=== PATIENT | female | born 1945 | race African-American/Black ===

== ENCOUNTER 2018-05-15 11:08 | Outpatient (CLI) | payer MEDICARE, BC ==
[~2018-05-15 11:08] MED LIST: Iopamidol 370 76% 100 ML VIAL ONE
--- NOTE | 2018-05-15 13:49 | CT ---
CTA OF THE ABDOMEN UTILIZING IV CONTRAST AND 3D REFORMATTED IMAGING: Date: 05/15/18 INDICATION: History of atherosclerotic disease. CONTRAST: 95 mL [id number]. COMPARISON: None. 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 The renal arterie s and SMA are patent. There is some mild to moderate scattered vascular calcification involving the a bdominal aorta. There is mild narrowing involving the origin of the BINTA. There are peripherally enhancing lesions within the liver. One is seen within the lateral left hepati c lobe on image 46 of series 2, measuring 2.6 cm. An additional is seen within segment 7 of the right hepatic lobe measuring 2.8 cm. There is a 9.0 cm nodule within the left adrenal gland that is incompletely characterized. There is a 4.6 mm cystic lesion involving the pancreatic body that is incompletely characterized. Spleen is normal in size. No pathologically enlarged lymph nodes are evident. Visualized unopacified large and small bowel are unremarkable. There is scattered degenerative and osteoarthritic change. IMPRESSION: 1. 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 2. Mild narrowing involving the BINTA origin. 3. Peripherally enhancing hypodensities within the liver, incompletely characterized. Differential c onsiderations include possibly hemangioma or metastatic disease. 4. Left adrenal nodule, incompletely characterized. 5. Small hypodensity within the pancreatic body incompletely characterized. Recommend consideration for CT or MRI of the abdomen utilizing a hemangioma protocol for further audelia acterization of the lesions within the liver, left adrenal gland, and pancreas. POS: VENICE
== END 2018-05-15 11:09 | disposition home or self-care (01) ==
LOC: CT 11:08
PROVIDERS: ATTEND Thoracic Surgery (Cardiothoracic Vascular Surgery)
DX: I70.211 Atherosclerosis of native arteries of extremities with intermittent claudication, right leg (principal); I77.4 Celiac artery compression syndrome; K55.1 Chronic vascular disorders of intestine; E27.8 Other specified disorders of adrenal gland; R93.2 Abnormal findings on diagnostic imaging of liver and biliary tract; K86.89 Other specified diseases of pancreas
CPT/HCPCS: 74175; 82565

== ENCOUNTER 2018-07-13 14:40 | Outpatient (CLI) | payer MEDICARE, BC ==
--- NOTE | 2018-07-14 10:28 | CT ---
CT ANGIO OF THE ABDOMEN AND PELVIS AND LOWER EXTREMITIES PERFORMED WITH AND WITHOUT CONTRAST WITH 3D RECONSTRUCTIONS: History: Leg pain. History of previous stent placement. Vascular disease. Comparison: 05-25-18 FINDINGS: Lung bases shows some mild chronic appearing changes. No infiltrative process. The liver and spleen are normal in size. There is a questionable abnormality within the right lobe of the liver on the previous examination. On this arterial phase study, the changes seen on the prior s tudy are difficult to even appreciate. The pancreas and gallbladder regions appear unremarkable. Slig ht nodularity to the left adrenal glands. The right and left kidneys are normal in size. There is an indeterminate hypodensity within the left kidney, statistically most likely a small cyst. There is no significant periaortic or mesenteric adenopathy. The abdominal aorta is normal in caliber. There is mild atherosclerotic change. There is some mild na rrowing of the origin of the celiac artery and minimal narrowing of the origin of the superior mesent ganga artery. The BINTA is present and patent. The right lower extremity run off shows no significant narrowing of the right common iliac artery. Th ere is mild narrowing of the right external iliac shortly beyond its origin, but the stenosis is at a pproximately 50%. 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 The stent extends to approximat luis miguel the level of the adductor canal. There is no flow demonstrated within the stent. There is a paten t profunda femoral artery noted. There is reconstitution of the popliteal artery via collaterals. The re is moderate stenosis of greater than 50% of the popliteal artery. There is a patent trifurcation a lthough the anterior tibial artery appears to occlude shortly after its origin. The posterior tibial artery also occludes and there is essentially one vessel runoff with the patent peroneal extending to the foot. On the left side the left common iliac artery shows an area of mild stenosis of approximately 50%. Th ere is dense atherosclerotic change of the origin of the internal common iliac artery with a patent e xternal iliac artery which shows an area of fairly severe stenosis just before becoming the common fe moral artery and there appears to be some small collaterals that form related to this. There is moder ate atherosclerotic disease within the left common femoral artery. There is occlusion of the superfic ial femoral artery at its origin with patent profunda femoral artery which has collaterals which zunilda nstitute the popliteal artery which has moderately severe stenosis. Once again there does appear to b e a patent trifurcation but the anterior tibial artery appears to occlude shortly after its origin. T here is flow seen within the posterior tibial and peroneal branches. IMPRESSION: 1. The right lower extremity run off shows moderate stenosis of the right external iliac artery with occlusion of the external iliac artery just above the level of a long stent involving the common femo ral and superficial arteries which extends to the adductor canal. There is no flow within the stent. The profunda femoral artery is patent and it reconstitutes a popliteal artery which shows moderately severe stenosis and there is single vessel runoff on the right with the peroneal extending to the russell t. 2. On the left side there is a fairly high grade area of narrowing of left external iliac artery just before it becomes the common femoral artery. There are small collaterals that are formed in this are a. There is also a moderately severe stenosis of the common femoral artery and occlusion of the super ficial femoral artery at its origin with patent profunda femoral artery which reconstitutes a poplite al artery with moderate stenosis of the popliteal artery and two vessel runoff with runoff seen relat ed to the posterior tibial and peroneal branches. POS: C
== END 2018-07-13 14:41 | disposition home or self-care (01) ==
LOC: BICCT 14:40
PROVIDERS: ATTEND Thoracic Surgery (Cardiothoracic Vascular Surgery)
DX: I70.211 Atherosclerosis of native arteries of extremities with intermittent claudication, right leg (principal); I74.5 Embolism and thrombosis of iliac artery; I70.8 Atherosclerosis of other arteries
CPT/HCPCS: 75635

== ENCOUNTER 2018-07-20 05:47 | Inpatient (IN) | payer MEDICARE, BC ==
[2018-07-19 13:48] VITALS: BMI 26.4
[2018-07-20] MEDS ORDERED: Heparin 5,000 UNITS/ML VIAL ONE (06:31)
[2018-07-20] MEDS ORDERED: Protamine Sulfate 50 MG/5 ML VIAL ONE (06:31)
[2018-07-20] MEDS ORDERED: Midazolam HCl 2 mg/2 ml Vial ONE (06:56)
[2018-07-20] MEDS ORDERED: Fentanyl 250 MCG/5 ML VIAL ONE (06:56)
[2018-07-20 07:00] LABS: Hemoglobin 12.6 g/dL (12.0-16.0); Mean Corpuscular HGB CONC 31.8 g/dL (32.0-36.0); Mean Corpuscular Hemoglobin 27.9 pg (27.0-31.0); Mean Corpuscular Volume 87.8 fL (78.0-98.0); Mean Platelet Volume 8.2 fL (7.4-10.4); Platelet Count 188 thou/uL (130-400); RBC Distribution Width 14.7 % (11.5-14.5); Red Blood Cell (RBC) Count 4.51 mill/uL (4.20-5.40); White Blood Cell (WBC) Count 5.7 thou/uL (4.8-10.8)
[2018-07-20] MEDS ORDERED: CEFAZOLIN 2 GM/50 ML BAG ONE (07:04)
[2018-07-20 07:07] LABS: Anion Gap 16 mmol/L (10-20); BUN (Urea Nitrogen) 19 mg/dL (9.8-20.1); Calc. Creatinine Clearance 54 mL/min (70-130); Calcium 10.8 mg/dL (7.8-10.44); Carbon Dioxide 25 mmol/L (23-31); Chloride 103 mmol/L (98-107); Estimated GFR-MDRD 68; Glucose 107 mg/dL (83-110); Potassium 3.5 mmol/L (3.5-5.1); Sodium 140 mmol/L (136-145)
[2018-07-20] MEDS ORDERED: Fentanyl 100 MCG/2 ML VIAL ONE ×2 (11:22→13:57)
[2018-07-20] MEDS ORDERED: PROPOFOL 200 MG/20 ML VIAL ONE (11:42)
[2018-07-20] MEDS ORDERED: Ketorolac Tromethamine 30 MG/ML VIAL ONE (11:42)
[2018-07-20] MEDS ORDERED: Ondansetron PF 4 MG/2 ML Vial ONE (11:42)
[2018-07-20] MEDS ORDERED: Glycopyrrolate 0.2 MG/ML 5 ML SYRINGE ONE (11:42)
[2018-07-20] MEDS ORDERED: Heparin 10,000 UNITS/ 10 ML VIAL ONE (11:42)
[2018-07-20] MEDS ORDERED: Lidocaine 1% PF 5 ML VIAL ONE (11:42)
[2018-07-20] MEDS ORDERED: Dexamethasone 20 MG/5 ML VIAL ONE (11:42)
[2018-07-20] MEDS ORDERED: Vecuronium 10 MG VIAL ONE (11:42)
[2018-07-20] MEDS ORDERED: Promethazine HCl 25 MG/ML VIAL IM PRN (12:47)
[2018-07-20] MEDS ORDERED: Ondansetron HCl/PF 4 MG/2 ML Vial IVP PRN (12:47)
[2018-07-20] MEDS ORDERED: Promethazine HCl 25 MG/ML VIAL SLOW IVP PRN (12:47)
[2018-07-20] MEDS ORDERED: Insulin Regular 300 UNITS/3 ML VIAL SC PRN (14:17)
[2018-07-20] MEDS ORDERED: HYDROcodone/Acetaminophen 5/325 mg Tablet PO PRN (14:17)
[2018-07-20] MEDS ORDERED: CEFAZOLIN/Water 2 GM/20 ML SYRINGE SLOW IVP SCH (14:17)
[2018-07-20] MEDS ORDERED: Nitroglycerin 50 MG/250 ML BOT 250 ML IVPB PRN (14:17)
[2018-07-20] MEDS ORDERED: traMADol HCl 50 MG TAB PO PRN (14:17)
[2018-07-20] MEDS ORDERED: DOPamine 400 MG/D5W 250 ML 250 ML IVPB PRN (14:17)
[2018-07-20] MEDS ORDERED: Acetaminophen 325 MG TAB PO PRN (14:17)
[2018-07-20] MEDS ORDERED: Fentanyl 100 MCG/2 ML VIAL SLOW IVP PRN ×2 (14:17)
[2018-07-20] MEDS ORDERED: Phenylephrine 10 MG/NS 250 ML 250 ML IVPB PRN (14:17)
[2018-07-20] MEDS: Ondansetron PF 4 MG/2 ML Vial IVP PRN (14:57)
[2018-07-20] MEDS: CEFAZOLIN 2 GM/50 ML-DEXTROSE 2 GM in Premix Bag 1 BAG IVPB SCH ×2 (15:00→23:29)
[2018-07-20] MEDS: Sodium Chloride 0.9% 1,000 ML IV SCH (15:02)
--- NOTE | 2018-07-20 15:35 | EKG ---
Test Reason : PREOP Blood Pressure : / mmHG Vent. Rate : 059 BPM Atrial Rate : 059 BPM P-R Int : 188 ms QRS Dur : 082 ms QT Int : 410 ms P-R-T Axes : 065 025 017 degrees QTc Int : 405 ms Sinus bradycardia Otherwise normal ECG No previous ECGs available Confirmed by VINICIUS SCHREIBER ([id number]) on 07/20/2018 3:33:05 PM Referred By: SHRUTI Confirmed By:VINICIUS SCHREIBER
[2018-07-20] MEDS: Enoxaparin Sodium 30 MG/0.3 ML SYRINGE SC SCH (21:47)
[2018-07-20] MEDS: Atorvastatin Calcium 10 MG TAB PO SCH (21:47)
[2018-07-20] MEDS: Carvedilol 3.125 MG TAB PO SCH (21:49)
[2018-07-21] MEDS: HYDROcodone/Acetaminophen 5/325 mg Tablet PO PRN (02:17)
[2018-07-21 05:45] LABS: #Lymphocytes 2.1 thou/uL (1.20-3.40); #Monocytes 0.8 thou/uL (0.11-0.59); #Neutrophils 6.6 thou/uL (1.40-6.50); %Basophils 0.2 % (0.0-1.0); %Lymphocytes 22.2 % (21.0-51.0); %Monocytes 8.3 % (0.0-10.0); %Neutrophils 69.2 % (42.0-75.0); Hemoglobin 8.9 g/dL (12.0-16.0); Mean Corpuscular HGB CONC 32.2 g/dL (32.0-36.0); Mean Corpuscular Hemoglobin 27.7 pg (27.0-31.0); Mean Corpuscular Volume 86.2 fL (78.0-98.0); Mean Platelet Volume 7.4 fL (7.4-10.4); Platelet Count 264 thou/uL (130-400); RBC Distribution Width 14.7 % (11.5-14.5); Red Blood Cell (RBC) Count 3.21 mill/uL (4.20-5.40); White Blood Cell (WBC) Count 9.6 thou/uL (4.8-10.8)
[2018-07-21] MEDS: CEFAZOLIN 2 GM/50 ML-DEXTROSE 2 GM in Premix Bag 1 BAG IVPB SCH (07:40)
[2018-07-21] MEDS: Ondansetron PF 4 MG/2 ML Vial IVP PRN ×2 (08:13→13:48)
[2018-07-21] MEDS ORDERED: Amlodipine 10 MG TAB PO SCH (09:00)
[2018-07-21] MEDS: Clopidogrel Bisulfate 75 MG TAB PO SCH (09:19)
[2018-07-21] MEDS: Carvedilol 3.125 MG TAB PO SCH ×2 (09:20→20:42)
[2018-07-21] MEDS: Sodium Chloride 0.9% 1,000 ML IV SCH ×2 (12:09→22:13)
[2018-07-21] MEDS: Atorvastatin Calcium 10 MG TAB PO SCH (20:41)
[2018-07-21] MEDS: Enoxaparin Sodium 30 MG/0.3 ML SYRINGE SC SCH (20:42)
[2018-07-22 05:40] LABS: #Basophils 0.1 thou/uL (0.0-0.2); #Lymphocytes 2.7 thou/uL (1.20-3.40); #Monocytes 0.8 thou/uL (0.11-0.59); #Neutrophils 6.2 thou/uL (1.40-6.50); %Basophils 0.9 % (0.0-1.0); %Eosinophils 0.1 % (0.0-10.0); %Lymphocytes 27.6 % (21.0-51.0); %Monocytes 8.1 % (0.0-10.0); %Neutrophils 63.2 % (42.0-75.0); Hemoglobin 8.5 g/dL (12.0-16.0); Mean Corpuscular HGB CONC 31.5 g/dL (32.0-36.0); Mean Corpuscular Hemoglobin 27.3 pg (27.0-31.0); Mean Corpuscular Volume 86.8 fL (78.0-98.0); Mean Platelet Volume 7.7 fL (7.4-10.4); Platelet Count 230 thou/uL (130-400); RBC Distribution Width 14.7 % (11.5-14.5); Red Blood Cell (RBC) Count 3.12 mill/uL (4.20-5.40); White Blood Cell (WBC) Count 9.7 thou/uL (4.8-10.8)
[2018-07-22] MEDS: Carvedilol 3.125 MG TAB PO SCH ×2 (08:37→20:47)
[2018-07-22] MEDS: Clopidogrel Bisulfate 75 MG TAB PO SCH (08:37)
[2018-07-22] MEDS ORDERED: Loratadine 10 MG TAB PO PRN (11:16)
[2018-07-22] MEDS: Atorvastatin Calcium 10 MG TAB PO SCH (20:47)
[2018-07-22] MEDS: Enoxaparin Sodium 30 MG/0.3 ML SYRINGE SC SCH (20:47)
[2018-07-23] MEDS: Clopidogrel Bisulfate 75 MG TAB PO SCH (10:09)
[2018-07-23] MEDS: Carvedilol 3.125 MG TAB PO SCH ×2 (10:11→21:15)
[2018-07-23] MEDS: Enoxaparin Sodium 30 MG/0.3 ML SYRINGE SC SCH (21:15)
[2018-07-23] MEDS: Atorvastatin Calcium 10 MG TAB PO SCH (21:15)
[2018-07-24] MEDS ORDERED: Furosemide 20 MG TAB PO SCH (06:45)
[2018-07-24] MEDS ORDERED: Furosemide 40 MG TAB PO SCH (06:45)
[2018-07-24] MEDS: Clopidogrel Bisulfate 75 MG TAB PO SCH (09:06)
[2018-07-24] MEDS: Lisinopril 10 MG TAB PO SCH (09:06)
[2018-07-24] MEDS: Carvedilol 3.125 MG TAB PO SCH ×2 (09:07→20:19)
[2018-07-24] MEDS: Atorvastatin Calcium 10 MG TAB PO SCH (20:18)
[2018-07-24] MEDS: Enoxaparin Sodium 30 MG/0.3 ML SYRINGE SC SCH (20:19)
[2018-07-25] MEDS: Lisinopril 10 MG TAB PO SCH (08:34)
[2018-07-25] MEDS: Clopidogrel Bisulfate 75 MG TAB PO SCH (08:34)
[2018-07-25] MEDS: Carvedilol 3.125 MG TAB PO SCH ×2 (08:35→20:33)
[2018-07-25] MEDS: HYDROcodone/Acetaminophen 5/325 mg Tablet PO PRN (16:13)
[2018-07-25] MEDS: Enoxaparin Sodium 30 MG/0.3 ML SYRINGE SC SCH (20:33)
[2018-07-25] MEDS: Atorvastatin Calcium 10 MG TAB PO SCH (20:33)
--- NOTE | 2018-07-26 06:28 | DIS ---
HOSPITAL COURSE: This is a 72-year-old female with a new onset of severe claudication in her right l eg and noted to have occlusion of a previously stented area from another facility. She was taken to the operating room where she underwent external iliac artery to above knee popliteal artery bypass wi th 8 mm ringed Hartland-Adis. The patient also had a vein bypass from the supra to infrageniculate poplit eal artery to which the Hartland-Adis graft was attached above the knee. Additionally, a short segment of vein was used to connect the deep femoral system with the graft in the groin. Postoperatively, she did well and had no signs of infection. She was afebrile. Groin wounds were healing nicely. She wi ll be discharged on 07/26/2018 to resume her home medications plus tramadol and Plavix. Discharge an d follow up instructions have been given. Auxier will be removed on office visit.
[2018-07-26 08:11] VITALS: BP 154/72; TEMP 98.7
[2018-07-26] MEDS: Clopidogrel Bisulfate 75 MG TAB PO SCH (08:14)
[2018-07-26] MEDS: Carvedilol 3.125 MG TAB PO SCH (08:14)
[2018-07-26] MEDS: Lisinopril 10 MG TAB PO SCH (08:14)
--- NOTE | 2018-07-27 10:49 | OP ---
DATE OF OPERATION: 07/20/2018 PREOPERATIVE DIAGNOSIS: Severe ischemia, right lower extremity. PROCEDURES: 1. Right external iliac to suprageniculate popliteal artery with 8-mm ringed Dickinson-Adis. 2. Vein graft from the deep femoral artery to the side of the Dickinson-Adis graft at the level of the khoi in. 3. Nonreversed vein graft from the suprageniculate popliteal artery to the infrageniculate popliteal artery. ESTIMATED BLOOD LOSS: 300 mL. ANESTHESIA: General. PROCEDURE IN DETAIL: After adequate anesthesia had been obtained and antibiotics given, the patient was prepped and draped. Ultrasound had been used to isolate the saphenous vein and harvesting was be gun at the level of the knee and carried down below the knee as well as upper thigh through separate incisions. The vein was not satisfactory for bypass grafting from the entire length of the needed gr aft; however, there was a segment usable and that was subsequently prepared. The popliteal artery wa s isolated above and below the knee through separate incisions. The patient had a known significant stenosis behind the knee level and thus the requirement for bypass of both above and below. Followin g this, incision was made in the groin, and there were significant inflammatory changes, perhaps rela navin to previous common femoral artery stenting. Dissection was tedious, but ultimately the profunda system was identified with a common trunk that then bifurcated into 2 branches, and it was known that the common trunk was occluded. Following this, a muscle splitting incision was made obliquely above the inguinal ligament and the retroperitoneum entered. The external iliac artery was isolated and w as soft at the level it was isolated with a good pulse. There was a large branch descending adjacent to the external iliac artery, arising from the distal external iliac artery. This measured about 3 mm in diameter. The patient then had a tunnel created from the retroperitoneum into the groin incisi on and then down to the suprageniculate popliteal artery. Heparin was given. Following this, the il iac artery was clamped and end-to-side anastomosis with the Dickinson-Adis graft was performed. Following completion of this anastomosis, the hemostasis was good. The graft had been brought through its tunn el and the next procedure was to anastomose the saphenous vein in a nonreversed fashion to the medial branch of the profunda artery. Following this, an incision was made in the side of the Dickinson-Adis gra ft after removal of a couple of firings and a second anastomosis completed. Flow was then restored t hrough the Dickinson-Adis graft to this level, following which attention was turned to incisions above and below the knee. Saphenous vein was anastomosed in a nonreversed fashion in an end-to-side fashion to the infrageniculate popliteal artery and then brought through the tunnel and anastomosed to the supr ageniculate popliteal artery. The hanson of the vein was opened at the anastomosis to the supragenicul ate popliteal artery and the Dickinson-Adis graft was anastomosed here. Following this, protamine was give n to partially reverse the heparin, and after irrigating the wounds, they were all closed in layers. The patient is to be taken to the recovery room in guarded condition.
== END 2018-07-26 11:35 | disposition home or self-care (01) | DRG 254 ==
LOC: SURG A 05:47 → CCU 14:28 → SJJU 07-21 15:15
PROVIDERS: ADMIT Thoracic Surgery (Cardiothoracic Vascular Surgery); ATTEND Thoracic Surgery (Cardiothoracic Vascular Surgery)
PROC: 061 Lower Veins, Bypass (ICD-10-PCS; principal; 2018-07-20)
PROC: 061M09Y Bypass Right Femoral Vein to Lower Vein with Autologous Venous Tissue, Open Approach (ICD-10-PCS; 2018-07-20)
DX: I70.211 Atherosclerosis of native arteries of extremities with intermittent claudication, right leg (principal); I10 Essential (primary) hypertension; E78.2 Mixed hyperlipidemia; Z87.891 Personal history of nicotine dependence; Z95.820 Peripheral vascular angioplasty status with implants and grafts; Z82.49 Family history of ischemic heart disease and other diseases of the circulatory system; Z80.9 Family history of malignant neoplasm, unspecified
CPT/HCPCS: 36415; 80048; 85025; 85027; 93005; 93010; 96374; G8978-GP-CM; G8979-GP-CK; J1100; J1642; J1644; J1650; J1885; J2001; J2250; J2405; J2704; J2720; J3010

== ENCOUNTER 2019-01-31 11:30 | Outpatient (CLI) | payer MEDICARE, BC ==
[2019-01-31 14:12] LABS: #Eosinphils 0.2 thou/uL (0.0-0.7); #Lymphocytes 2.3 thou/uL (1.20-3.40); #Monocytes 0.6 thou/uL (0.11-0.59); %Basophils 0.6 % (0.0-1.0); %Eosinophils 2.9 % (0.0-10.0); %Lymphocytes 37.6 % (21.0-51.0); %Monocytes 9.9 % (0.0-10.0); %Neutrophils 48.9 % (42.0-75.0); Hemoglobin 10.1 g/dL (12.0-16.0); Mean Corpuscular HGB CONC 31.7 g/dL (32.0-36.0); Mean Corpuscular Hemoglobin 26.1 pg (27.0-31.0); Mean Corpuscular Volume 82.5 fL (78.0-98.0); Mean Platelet Volume 7.4 fL (7.4-10.4); Platelet Count 349 thou/uL (130-400); RBC Distribution Width 16.3 % (11.5-14.5); Red Blood Cell (RBC) Count 3.87 mill/uL (4.20-5.40); White Blood Cell (WBC) Count 6.1 thou/uL (4.8-10.8)
[2019-01-31 14:34] LABS: Anion Gap 11 mmol/L (10-20); BUN (Urea Nitrogen) 21 mg/dL (9.8-20.1); Calc. Creatinine Clearance 0 mL/min (70-130); Calcium 10.1 mg/dL (7.8-10.44); Carbon Dioxide 28 mmol/L (23-31); Chloride 106 mmol/L (98-107); Estimated GFR-MDRD 42; Glucose 108 mg/dL (83-110); Potassium 3.3 mmol/L (3.5-5.1); Sodium 142 mmol/L (136-145)
== END 2019-01-31 11:31 | disposition home or self-care (01) ==
LOC: LABBT 11:30
PROVIDERS: ATTEND Specialist
DX: Z01.818 Encounter for other preprocedural examination (principal); K62.1 Rectal polyp
CPT/HCPCS: 80048; 85025; 93005; 93010

== ENCOUNTER 2019-02-06 07:04 | Day surgery (SDC) | payer MEDICARE, BC ==
[2019-01-31 12:41] VITALS: BMI 26.5
[2019-02-06] MEDS ORDERED: cefOXitin 2 GM VIAL ONE (07:42)
[2019-02-06] MEDS ORDERED: Sodium Chloride 0.9% 100 ML ONE (07:42)
[2019-02-06] MEDS ORDERED: Ketorolac Tromethamine 30 MG/ML VIAL ONE (07:42)
[2019-02-06] MEDS ORDERED: Bupivacaine/Epinephrine 0.25% 30 ML VIAL ONE (08:57)
[2019-02-06] MEDS ORDERED: Lidocaine 2% Jelly 5 ML TUBE ONE ×3 (08:57→14:37)
[2019-02-06] MEDS ORDERED: Fentanyl 100 MCG/2 ML VIAL ONE ×2 (08:59→14:28)
--- NOTE | 2019-02-06 10:44 | OP ---
DATE OF PROCEDURE: 02/06/2019 PREOPERATIVE DIAGNOSIS: Distal rectal polyp. POSTOPERATIVE DIAGNOSIS: Distal rectal polyp. PROCEDURE PERFORMED: Transanal excision of a 1.5 cm distal rectal polyp at approximately the 10 o'clock radian. ANESTHESIA: General endotracheal. INDICATIONS: The patient is a 73-year-old female. She had recent colonoscopy revealing a distal colonic polyp that was not amenable to colonoscopic resection. She is taken to the operating room at this time for transanal resection. DESCRIPTION OF OPERATION: Informed consent was obtained. The patient was taken to the operating room, where general endotracheal anesthesia was obtained with the patient in supine position. She was rolled over into prone cristian-knife position. Buttocks were taped apart. Areas prepped with Betadine and draped in sterile fashion. Local anesthetic was infiltrated in a 4-quadrant intersphincteric fashion using 0.25% Marcaine with epinephrine. Careful visual inspection was carried out to the entire rectum. The only area that was abnormal at all was at about the 10 o'clock radian. This was an area that was somewhat transversely oriented, although I had a pedunculated segment of polyp coming off this. Suctioning of this area led to suction removal of the pedunculated portion of the polyp inadvertently. This was retrieved from within the suction canister and submitted to the specimen. The rest of the rectum was thoroughly inspected both with visual inspection without finding of abnormality. Attention was returned to the polypoid area. Submucosal tissue was infiltrated with additional local anesthetic. It was then excised in a transverse elliptical fashion and submitted as specimen. The wound was closed using a running suture of 3-0 Vicryl in a to and fro fashion. Hemostasis was meticulous. Gel-Foam with lidocaine gel was placed within the rectum and dry gauze dressing and mesh pants placed externally. There were no complications. The patient tolerated the procedure well, was taken to recovery room in stable condition. Job ID: [id number]
[2019-02-06] MEDS ORDERED: PROPOFOL 200 MG/20 ML VIAL ONE ×2 (13:07→13:08)
[2019-02-06] MEDS ORDERED: Dexamethasone 20 MG/5 ML VIAL ONE ×2 (13:07→13:08)
[2019-02-06] MEDS ORDERED: Ondansetron PF 4 MG/2 ML Vial ONE ×2 (13:07→13:08)
[2019-02-06] MEDS ORDERED: ePHEDrine 50 MG/ML VIAL ONE ×2 (13:07→13:08)
[2019-02-06] MEDS ORDERED: Rocuronium Bromide 10 MG/ML (10ML VIAL) ONE (13:07)
[2019-02-06] MEDS ORDERED: Lidocaine 1% PF 5 ML VIAL ONE ×2 (13:07→13:08)
[2019-02-06] MEDS ORDERED: Glycopyrrolate 0.2 MG/ML 5 ML SYRINGE ONE (13:07)
[2019-02-06] MEDS ORDERED: HYDROcodone/Acetaminophen 5/325 mg Tablet ONE (16:55)
--- NOTE | 2019-02-07 10:49 | OP ---
DATE OF PROCEDURE: 02/06/2019 PREOPERATIVE DIAGNOSIS: Postoperative bleeding from rectum. POSTOPERATIVE DIAGNOSIS: Postoperative bleeding from rectum with single area of bleeding along her prior excision line. PROCEDURE PERFORMED: Rectal exploration with suture ligation of bleeding site on rectal suture line. ANESTHESIA: General endotracheal. INDICATIONS: The patient is a 73-year-old black female. She had undergone a transanal resection of a rectal polyp several hours previously. She developed some rectal bleeding prior to being discharged home. This was observed for a period of time and persisted, and I recommended reexploration. DESCRIPTION OF PROCEDURE: Informed consent was obtained. The patient was taken to the operating room, where general anesthesia obtained with the patient in the supine position. She was placed into a dorsal lithotomy using candy-cane stirrups. Perianal area was prepped with Betadine. The rectal speculum was passed into the anal canal, and the excision line was inspected. There was noted to be a relatively slow, but persistent area of what appeared to be bright red bleeding along the posterior aspect of the incision line of the closure. Incision line was more or less transverse within the rectum. The area of bleeding was quickly controlled with a single interrupted [id number] suture of 3-0 Vicryl. Gel-Foam and lidocaine jelly were then placed internally, and a dry gauze dress was placed externally. There were no complications, and no blood loss. The operation took about 3 minutes to perform. Job ID: [id number]
== END 2019-02-06 17:25 | disposition home or self-care (01) ==
LOC: SDC 07:04
PROVIDERS: ATTEND Specialist
PROC: 0DBP7ZZ Excision of Rectum, Via Natural or Artificial Opening (ICD-10-PCS; principal; 2019-02-06)
DX: K62.1 Rectal polyp (principal); K91.840 Postprocedural hemorrhage of a digestive system organ or structure following a digestive system procedure; I10 Essential (primary) hypertension; E78.00 Pure hypercholesterolemia, unspecified; Z79.82 Long term (current) use of aspirin; Z79.899 Other long term (current) drug therapy
CPT/HCPCS: 88305; J0131; J0694; J1100; J1885; J2001; J2405; J2704; J3010; J3490

== ENCOUNTER 2019-04-18 16:17 | Outpatient (CLI) | payer MEDICARE, BC ==
--- NOTE | 2019-04-18 18:06 | MMO ---
Bilateral MAMMO Bilat Screen [facility]. CLINICAL HISTORY: Patient is 73 years old and is seen for screening. The patient has the following family history of breast cancer: mother. The patient has no personal history of cancer. VIEWS: The views performed were: bilateral craniocaudal with tomosynthesis and bilateral mediolateral oblique with tomosynthesis. FILMS COMPARED: The present examination has been compared to prior imaging studies performed at [facility] on 07/03/2007, 09/11/2008, 10/13/2010 and 10/02/2015. MAMMOGRAM FINDINGS: There are scattered fibroglandular densities. There are no suspicious masses, suspicious calcifications, or new areas of architectural distortion. IMPRESSION: THERE IS NO MAMMOGRAPHIC EVIDENCE OF MALIGNANCY. A ROUTINE FOLLOW-UP MAMMOGRAM IN 1 YEAR IS RECOMMENDED. THE RESULTS OF THIS EXAM WERE SENT TO THE PATIENT. ACR BI-RADS Category 1 - Negative MAMMOGRAPHY NOTE: 1. A negative mammogram report should not delay a biopsy if a dominant of clinically suspicious mass is present. 2. Approximately 10% to 15% of breast cancers are not detected by mammography. 3. Adenosis and dense breasts may obscure an underlying neoplasm. Reported by: RAMONITA RIVAS MD Electonically Signed: [id number]
== END 2019-04-18 16:18 | disposition home or self-care (01) ==
LOC: BICMAMMO 16:17
PROVIDERS: ATTEND Family Medicine
DX: Z12.31 Encounter for screening mammogram for malignant neoplasm of breast (principal); Z80.3 Family history of malignant neoplasm of breast
CPT/HCPCS: 77063; 77067

== ENCOUNTER 2020-08-01 12:34 | Emergency (ER) | payer MEDICARE, BC ==
[2020-08-01 22:18] LABS: SARS-CoV-2 MS2 Positive; SARS-CoV-2 N Gene Negative; SARS-CoV-2 S Gene Negative; SARS-CoV-2 by NAA Not Detected (NotDetected); SARS-CoV-2 orf1ab Negative
== END 2020-08-01 13:40 | disposition home or self-care (01) ==
LOC: ERS 12:34
DX: R05 Cough (principal); R09.89 Other specified symptoms and signs involving the circulatory and respiratory systems; Z20.828 Contact with and (suspected) exposure to other viral communicable diseases
CPT/HCPCS: 99283; U0003; 87635

== ENCOUNTER 2020-11-18 12:09 | Outpatient (CLI) | payer MEDICARE, BC ==
--- NOTE | 2020-11-18 12:55 | MMO ---
Bilateral MAMMO Bilat Screen [facility]. CLINICAL HISTORY: Patient is 75 years old and is seen for screening. The patient has the following family history of breast cancer: mother. The patient has no personal history of cancer. VIEWS: The views performed were: bilateral craniocaudal with tomosynthesis and bilateral mediolateral oblique with tomosynthesis. FILMS COMPARED: The present examination has been compared to prior imaging studies performed at [facility] on 09/11/2008, 10/13/2010, 10/02/2015 and 04/18/2019. This study has been interpreted with the assistance of computer-aided detection. MAMMOGRAM FINDINGS: There are scattered fibroglandular densities. There are stable benign appearing calcifications seen in both breasts. There are also vascular calcifications. There are no suspicious masses, suspicious calcifications, or new areas of architectural distortion. IMPRESSION: THERE IS NO MAMMOGRAPHIC EVIDENCE OF MALIGNANCY. A ROUTINE FOLLOW-UP MAMMOGRAM IN 1 YEAR IS RECOMMENDED. THE RESULTS OF THIS EXAM WERE SENT TO THE PATIENT. ACR BI-RADS Category 2 - Benign finding MAMMOGRAPHY NOTE: 1. A negative mammogram report should not delay a biopsy if a dominant of clinically suspicious mass is present. 2. Approximately 10% to 15% of breast cancers are not detected by mammography. 3. Adenosis and dense breasts may obscure an underlying neoplasm. Reported by: JENNIFER HOWELL MD Electonically Signed: [id number]
== END 2020-11-18 12:10 | disposition home or self-care (01) ==
LOC: BICMAMMO 12:09
PROVIDERS: ATTEND Family Medicine
DX: Z12.31 Encounter for screening mammogram for malignant neoplasm of breast (principal); Z80.3 Family history of malignant neoplasm of breast
CPT/HCPCS: 77063; 77067

== ENCOUNTER 2022-12-29 10:57 | Outpatient (CLI) | payer MEDICARE, BC | END 2022-12-29 10:58 | disposition home or self-care (01) | LOC: BICMAMMO 10:57 | PROVIDERS: ATTEND Internal Medicine | DX: Z12.31 Encounter for screening mammogram for malignant neoplasm of breast (principal) | CPT/HCPCS: 77063; 77067 ==

== ENCOUNTER 2023-05-25 11:38 | Outpatient (CLI) | payer MEDICARE, BC ==
[2023-05-25] MEDS ORDERED: Iopamidol 370 76% 100 ML VIAL ONE (12:23)
== END 2023-05-25 11:39 | disposition home or self-care (01) ==
LOC: CT 11:38
PROVIDERS: ATTEND Thoracic Surgery (Cardiothoracic Vascular Surgery)
DX: I70.211 Atherosclerosis of native arteries of extremities with intermittent claudication, right leg (principal); K76.9 Liver disease, unspecified; R91.8 Other nonspecific abnormal finding of lung field
CPT/HCPCS: 75635; 82565; Q9967

== ENCOUNTER 2024-01-31 11:55 | Outpatient (CLI) | payer MEDICARE, BC | END 2024-01-31 11:56 | disposition home or self-care (01) | LOC: BICMAMMO 11:55 | PROVIDERS: ATTEND Nurse Practitioner Family | DX: Z12.31 Encounter for screening mammogram for malignant neoplasm of breast (principal); Z80.3 Family history of malignant neoplasm of breast | CPT/HCPCS: 77063; 77067 ==